=== PATIENT | male | born 1990 | race Hispanic/Latino ===

== ENCOUNTER 2018-03-21 23:24 | Emergency (ER) | payer BC ==
--- NOTE | 2018-03-22 00:18 | Cat Scan Report ---
FINAL REPORT EXAM: CT HEAD/BRAIN WO CON HISTORY: closed head injury TECHNIQUE: CT was performed from the foramen magnum through the vertex in the axial plane without the use of intravenous contrast. PRIORS: None. FINDINGS: There is a small right parietal scalp hematoma. The manning/white matter attenuation pattern is normal. There is no mass lesion or mass effect. There are no abnormal extra-axial fluid collections. There is no evidence of acute intracranial hemorrhage or infarct. The ventricles are of normal size and configuration. The skull and orbits are unremarkable. The visualized paranasal sinuses are clear. IMPRESSION: Small right parietal scalp hematoma. Otherwise, normal CT of the head.
[2018-03-22] MEDS ORDERED: BOOSTRIX IM ONE (01:09)
[2018-03-22] MEDS ORDERED: XYLOCAINE 1% 20 mL INFILTRATI ONE (01:09)
--- NOTE | 2018-03-22 01:14 | Emergency Department Report ---
ED General Adult HPI - General Chief complaint: Multiple Trauma Stated complaint: LAC TO SCALP Time Seen by Provider: 03/22/18 00:53 Source: patient, family Mode of arrival: Wheelchair Limitations: Altered Mental Status - History of Present Illness Initial comments: Patient brought in with report of isolated head trauma with laceration to head from fall. Family reports that patient had been drinking with friends, reportedly 2 shots plus one beer, which is not an unusual amount for patient, but patient became ill on the ride home, pulled off near where he works, became ill and vomited, was unsteady for little bit, was unattended by friend for a minute or so, and found patient on ground at that time, with likely the patient had fallen, struck his head on the edge of a building at that site. Patient has been somewhat confused, not answering questions properly, and it was not clear whether was alcohol or head injury, the patient was brought in for further evaluation. His in good general health, works for the local [employer], parents are with him, reports that he has no major medical issues, does not take any medications on a regular basis, has no major allergies. CT scan was performed and cleared prior to my examination, with no acute injury , patient is awake on my examination, he interacts appropriately, but cannot fully answer some questions, but is overall generally clear and appropriate. He can give his name, recognizes parents, knows the month and year, but cannot accurately give his birthdate. He finds it difficult to adequately recall circumstances of his injury or preceding actions. He does remember going to the bar. He has local head soreness in the area of his laceration, but denies discomfort elsewhere, with no neck pain, no chest pain, no shortness of breath, no abdominal pain, no back pain, and no injury to his extremities. - Related Data Allergies Allergy/AdvReac Type Severity Reaction Status Date / Time Penicillins Allergy Unknown Verified 03/21/18 23:31 ED Review of Systems ROS: Stated complaint: LAC TO SCALP Other details as noted in HPI ED Past Medical Hx - Past Medical History Previous Medical History?: Yes Additional medical history: eczema - Social History Smoking Status: Never Smoker Substance Use Type: Alcohol ED Physical Exam - General Limitations: Altered Mental Status General appearance: alert, appears intoxicated (odor of alcohol present to palpation), other (awake, responsive, answers some questions incorrectly, but generally appropriate) - Head Head exam: Present: other (2 cm laceration right posterior temporal occipital region of vertical scalp. 1 cm laceration immediately superior, birthmark at the vertex of occiput noted, stable) - Eye Eye exam: Present: normal appearance, PERRL, nystagmus (2+ by segments), other ( gait is conjugate). Absent: periorbital swelling, periorbital tenderness - ENT ENT exam: Present: normal exam, TM's normal bilaterally (significant cerumen, no bleeding, visualized tympanic membranes are clear) - Neck Neck exam: Present: normal inspection, full ROM. Absent: tenderness - Respiratory Respiratory exam: Present: normal lung sounds bilaterally. Absent: respiratory distress, wheezes, rales, rhonchi - Cardiovascular Cardiovascular Exam: Present: regular rate, normal heart sounds. Absent: systolic murmur - GI/Abdominal GI/Abdominal exam: Present: soft, normal bowel sounds. Absent: tenderness, guarding, rebound, rigid - Rectal Rectal exam: Present: deferred - Extremities Exam Extremities exam: Present: normal inspection, full ROM, normal capillary refill. Absent: tenderness - Back Exam Back exam: Present: normal inspection. Absent: tenderness, vertebral tenderness - Neurological Exam Neurological exam: Present: alert, CN II-XII intact, reflexes normal. Absent: motor sensory deficit - Psychiatric Psychiatric exam: Present: normal affect, normal mood, other (appearance compatible with ethanol intoxication) - Skin Skin exam: Present: warm, dry, intact (other than laceration on posterior right scalp) ED Course Vital Signs 03/21/18 23:31 Temperature 36.8 C Pulse Rate 90 Respiratory 20 Rate Blood Pressure 108/78 O2 Sat by Pulse 98 Oximetry - Reevaluation(s) Reevaluation #1: 03/22/18 01:51 Patient awake, spontaneously conversive, appropriate, now has full recall, but able to give adequate history, reporting that he fell, had brief loss of consciousness, but good recall, knows his birthday, no where he is, knows where he works area he takes no routine medications, and is allergic only to penicillins. Patient was stable for suture repair, and will be stable for discharge. - Laceration /Wound Repair Head Wound Length (cm): 3 (2 cm predominant laceration, 1 cm satellite laceration) Wound's Depth, Shape: irregular, contused tissue Wound Explored: clean Irrigated w/ Saline (ccs): 50 Betadine Prep?: Yes Anesthesia: 1% Lidocaine Volume Anesthetic (ccs): 4 Number of Sutures: 5 (3 woo in major laceration, 2 woo and satellite laceration) Layer Closure?: No Sterile Dressing Applied?: No ED Medical Decision Making - Lab Data Result diagrams: 03/22/18 01:07 03/22/18 01:07 - Medical Decision Making This patient sustained a fall, and scalp laceration, primarily as result of being ill, with vomiting, and unsteady, and striking his head, while being intoxicated. He was somewhat slow to respond on initial examination, but cleared with observation, is fully awake and alert, has normal neurologic status , an alcohol level of 0.19, is significantly intoxicated, and compatible with patient's initial presentation. He is significantly improved, has no other injury, get adequate history, and wound was stapled. He is stable for discharge home, primary treatment should be rest, he may take ibuprofen or Tylenol, and is given a work release. He needs no specific neurologic precautions, but may return anytime if he has any worsening symptoms. - Differential Diagnosis scalp laceration, skull fracture, intracranial injury Critical Care Time: No Critical care attestation.: If time is entered above; I have spent that time in minutes in the direct care of this critically ill patient, excluding procedure time. ED Disposition Clinical Impression: Intoxication Scalp laceration Qualifiers: Encounter type: initial encounter Qualified Code(s): S01.01XA - Laceration without foreign body of scalp, initial encounter Disposition: TO HOME OR SELFCARE Is pt being admited?: No Does the pt Need Aspirin: No Condition: Stable Instructions: Staple Care (ED) Additional Instructions: Immediate ibuprofen or Tylenol for local discomfort, as well as local cooling or heat, as needed 15-30 minutes at a time for any areas of local soreness. Follow routine wound care precautions, primarily wash it gently, but otherwise leave it dry. Observe and return if there are any signs of infection, which include increased redness, pain and swelling or drainage. Otherwise, able to may be removed and 7-10 days. Work release for 2 days, no restrictions after return to work We have updated her tetanus, and this is good for 10 years, and unique tetanus immunizations every 10 years no matter what. Return anytime for recheck of any worrisome symptoms. Forms: Work/School Release Form(ED) Time of Disposition: 01:58
[2018-03-22 01:37] LABS: Basophils % (Auto) 0.2 % (0.0-1.8); Eosinophils % (Auto) 0.4 % (0.0-4.3); Hematocrit 46.6 % (35.5-45.6); Hemoglobin 15.9 gm/dl (11.8-15.2); Lymphocytes # (Auto) 1.4 K/mm3 (1.2-5.4); Mean Corpuscular HGB Conc 34 % (32-34); Mean Corpuscular Hemoglobin 30 pg (28-32); Mean Corpuscular Volume 89 fl (84-94); Monocytes # (Auto) 0.5 K/mm3 (0.0-0.8); Platelet Count 198 K/mm3 (140-440); Red Blood Count 5.26 M/mm3 (3.65-5.03); Red Cell Distribution Width 13.8 % (13.2-15.2)
[2018-03-22 01:51] LABS: BUN/Creatinine Ratio 21; Blood Urea Nitrogen 17 mg/dL (9-20); Calcium 8.5 mg/dL (8.4-10.2); Hemolysis Index 11
[2018-03-22 02:07] VITALS: BP 133/75
== END 2018-03-22 02:35 | disposition home or self-care (01) ==
LOC: ED 23:24
DX: S01.01XA Laceration without foreign body of scalp, initial encounter (principal); Z88.0 Allergy status to penicillin; X58.XXXA Exposure to other specified factors, initial encounter; Y93.89 Activity, other specified; Y99.8 Other external cause status; Y92.89 Other specified places as the place of occurrence of the external cause
CPT/HCPCS: 12002; 36415; 70450; 80048; 85025; 90471; 90715; 99284; G0480; 80320